=== PATIENT | male | born 1955 | race Caucasian/White ===

== ENCOUNTER 2024-08-21 14:34 | Outpatient (AMB) | payer MEDICARE, MEDICAID, SELFPAY ==
--- NOTE | 2024-08-21 15:02 | PD.ORTHCLVIS ---
Vital signs 08/21/24 15:06 Height 1.68 m Height Method Stated Weight 101 kg Weight Measurement Method Estimated by Patient BMI 35.8 BP 129/77 Blood Pressure Source Automatic Cuff Blood Pressure Location Right Upper Arm Position Sitting Respiration 20 Pulse 93 Pulse Source Monitor Temp 97.5 F Temp Source Temporal Artery Scan Pulse Oximetry (%) 85 L Oxygen Delivery Method Nasal Cannula Oxy Mask Med/Allergies Allergies & Medications Allergies No Known Allergies Allergy (Verified 08/21/24 15:06) Medication Reconciliation albuterol sulfate 90 mcg/actuation aerosol inhaler (Ventolin HFA) 2 puff inhalation Q6H 01/29/18 [History Confirmed 08/21/24] carvedilol 25 mg tablet 25 mg PO BID 01/29/18 [History Confirmed 08/21/24] acetaminophen 650 mg tablet,extended release (Tylenol 8 Hour) 650 mg PO Q8H 08/07/24 [History Confirmed 08/21/24] apixaban 5 mg tablet (Eliquis) 5 mg PO BID 08/07/24 [History Confirmed 08/21/24] aspirin 81 mg tablet,delayed release (Adult Low Dose Aspirin) 81 mg PO QDAY 08/07/24 [History Confirmed 08/21/24] atorvastatin 40 mg tablet 40 mg PO QDAY 08/07/24 [History Confirmed 08/21/24] benzonatate 100 mg capsule 100 mg PO TID 08/07/24 [History Confirmed 08/21/24] bisacodyl 5 mg tablet,delayed release (Dulcolax (bisacodyl)) 5 mg PO QHS 08/07/24 [History Confirmed 08/21/24] carvedilol 25 mg tablet 25 mg PO BID 08/07/24 [History Confirmed 08/21/24] cholecalciferol (vitamin D3) 50 mcg (2,000 unit) capsule 50 mcg PO QDAY 08/07/24 [History Confirmed 08/21/24] empagliflozin 25 mg tablet (Jardiance) 25 mg PO QDAY 08/07/24 [History Confirmed 08/21/24] enalapril maleate 20 mg tablet 20 mg PO QDAY 08/07/24 [History Confirmed 08/21/24] fluticasone 250 mcg-salmeterol 50 mcg/dose blistr powdr for inhalation (Advair Diskus) 1 inh inhalation BID 08/07/24 [History Confirmed 08/21/24] furosemide 20 mg tablet 20 mg PO QDAY 08/07/24 [History Confirmed 08/21/24] glipizide 10 mg tablet 10 mg PO BID 08/07/24 [History Confirmed 08/21/24] insulin glargine 100 unit/mL (3 mL) subcutaneous pen (Basaglar KwikPen U-100 Insulin) 10 unit subcut BID 08/07/24 [History Confirmed 08/21/24] lancets 30 gauge (CareSens Lancets) 08/07/24 [History Confirmed 08/21/24] pen needle, diabetic 31 gauge x 5/16 (Advocate Pen Needle) 08/07/24 [History Confirmed 08/21/24] prednisone 20 mg tablet 20 mg PO QDAY 08/07/24 [History Confirmed 08/21/24] umeclidinium 62.5 mcg/actuation blister powder for inhalation (Incruse Ellipta) 1 inh inhalation QDAY 08/07/24 [History Confirmed 08/21/24] Subjective Visit Visit for: new patient and knee Immunization / Flu Flu Vaccine in the Last 12 Months: No Flu Vaccine Exclusion Criteria: Refused by Patient History of Present Illness Chief complaint: CHRONIC KNEE PAIN Date of injury / onset of symptoms: MARGARITA Tapia is a pleasant 68-year-old male with multiple medical issues. He has left greater than right knee arthritis. He is on home oxygen and has a history of DVT and CHF. He reports that he cannot get surgery and this seems reasonable given what he is telling me.The pain is affecting his quality life and happiness. If he would like an injection in his right knee today. Personal History Occupation: DISABLED Red flag PMH: Blood thinners and COPD Pain Pain level (0-10): 9 Pain duration: ALL DAY Pain location: inside (medial), outside (lateral), anterior and posterior Pain quality: sharp, dull and aching Pain timing: night, increases with activity and stairs Associated signs & symptoms: numbness Ambulatory data Ambulatory device: none Treatments Improvement with previous injections: No Improvement with PT: No Improvement with NSAIDS: n/a Review of Systems Review of Systems: All systems negative unless otherwise noted in HPI. Exam Exam Patient is in no acute distress and is cooperative with the examination today. Breathing is nonlabored. In no respiratory distress. Bilateral extremities were evaluated and demonstrates sensation intact to light touch. Palpable pedal pulses are present. No significant edema is present. Bilateral hips were examined. The patient has no pain with log roll of the hips. Internal rotation to 30 degrees and external rotation to 30 degrees is painless. Negative FADIR. The left knee was examined. The left knee is in [varus] alignment. Range of motion from [0-115] degrees. Knee is stable to varus and valgus as well as AP translation with <5mm. Patient has a [negative] McMurrays. There is [no] pain with patellofemoral compression and [no] crepitus noted. The knee is [tender] to palpation [medially]. The right knee was also examined. The right knee is in [varus] alignment. Range of motion from [0-120] degrees. Knee is stable to varus and valgus as well as AP translation with <5mm. Patient has a [negative] McMurrays. There is [no] pain with patellofemoral compression and [no] crepitus noted. The knee is [tender] to palpation [medially]. Left knee x-rays from [facility] demonstrate significant joint space narrowing medially with varus deformity and arthritis Assessment and Plan Problem List (1) Degenerative arthritis of knee, bilateral: Status: Acute Plan: Patient is a pleasant 68-year-old male with bilateral knee pain and bilateral knee arthritis. Plan Recommend knee cortisone injection as patient would like to proceed with conservative treatment at this time. We will get an injection in the right knee. Recommend knee cortisone injection as patient would like to proceed with conservative treatment at this time. The risks and benefits of the procedure were reviewed with the patient and patient gave verbal consent to continue with the procedure. Procedure: performed by Dr. Montero Using sterile technique the Right knee was thoroughly prepped with alcohol, and approximately 1 cc of Kenalog 40 mg/mL and 4 cc of 1% lidocaine was injected without resistance into the medial tibial femoral joint space. The patient tolerated the procedure. Advanced Care Planning Discussion Advance care planning discussed with:: patient Office Procedures GNS Level of Care Nursing/Assessment Patient Status: Established Patient Nursing Assessment/Reassesment: Medication Reconciliation, Update PMH in EMR and Vital Signs Coordination of Care: Complex Care and Chronic Disease 1-5, Education Complex Pt/Fam, Consent,records obtained, informed consent, Results/Orders obtained and Staff clarify orders Established Patient Charge Established Patient Point Assignment: 95 Established Patient Point Charge: EP Level 3 (80-115) Surgical Proc/IM SQ injection Major Surgical Procedure: Yes (KNEE INJECTION) Medication Given Medication Given Medication Given: Yes Documented Dose Given: 4 Route: Infiitration Medication Given Medication Given Medication Given: Yes Documented Dose Given: 1 Route: Infiitration Office Meds Xylocaine 10 mg/mL (1 %) injection solution Performing Provider: Haroldo Montero MD Performing Location: [facility] Administered by: Haroldo Montero MD on 08/21/24 15:15 Dose Route Admin Location Dispensed Lot Number Expiration Date [facility] [employer] 20 mL Infiltration 20 mL [id number] [facility] triamcinolone acetonide 40 mg/mL suspension for injection Performing Provider: Haroldo Montero MD Performing Location: [facility] Administered by: Haroldo Montero MD on 08/21/24 15:15 Dose Route Admin Location Dispensed Lot Number Expiration Date [facility] [employer]ist 40 mg intra-articular 1 mL [id number] [employer] Past Medical History Past Medical History Have you ever been diagnosed with any of the following: Cardiology Problems Congestive Heart Failure: Yes Edema: Yes Hypertension: Yes Respiratory Problems Chronic Obstructive Pulmonary Disease (COPD): Yes Emphysema: Yes Smoking: No Smoking Cessation Counseling: No Smoking Exposure: No Tobacco Use: No Genital/Urinary Problems Renal Disease: No Endocrine Problems Diabetes Mellitus Type 1: No Diabetes Mellitus Type 2: Yes
[2024-08-21 15:06] VITALS: BP 129/77; PULSE 93; RESP 20; TEMP 36.4; O2SAT 85; BMI 35.8
== END 2024-08-21 15:19 | disposition home or self-care (01) ==
LOC: HODSRG 14:34
PROVIDERS: Supervising Provider Orthopaedic Surgery Adult Reconstructive Orthopaedic Surgery; Visit Provider Orthopaedic Surgery Adult Reconstructive Orthopaedic Surgery
DX: M17.0 Bilateral primary osteoarthritis of knee (principal); M25.562 Pain in left knee; M25.561 Pain in right knee; I11.0 Hypertensive heart disease with heart failure; I50.9 Heart failure, unspecified; Z99.81 Dependence on supplemental oxygen; Z86.718 Personal history of other venous thrombosis and embolism
CPT/HCPCS: 20610; 99213; J3301; J3490; G0463

== ENCOUNTER 2024-11-20 14:32 | Outpatient (AMB) | payer MEDICARE, SELFPAY ==
[2024-11-20 14:45] VITALS: BP 107/69; PULSE 78; RESP 18; TEMP 36.7; O2SAT 88; BMI 34.6
--- NOTE | 2024-11-20 14:45 | ORTHONT_ITS ---
Vital signs 11/20/24 14:45 Height 1.68 m Height Method Stated Weight 97.749 kg Weight Measurement Method Standing Scale BMI 34.6 BP 107/69 Blood Pressure Source Automatic Cuff Blood Pressure Location Left Upper Arm Position Sitting Respiration 18 Pulse 78 Pulse Source Monitor Temp 98.1 F Temp Source Temporal Artery Scan Pulse Oximetry (%) 88 L Oxygen Delivery Method Room Air Nasal Cannula Med/Allergies Allergies & Medications Allergies No Known Allergies Allergy (Verified 11/20/24 14:46) Medication Reconciliation albuterol sulfate 90 mcg/actuation aerosol inhaler (Ventolin HFA) 2 puff inhalation Q6H 01/29/18 [History Confirmed 11/20/24] carvedilol 25 mg tablet 25 mg PO BID 01/29/18 [History Confirmed 11/20/24] acetaminophen 650 mg tablet,extended release (Tylenol 8 Hour) 650 mg PO Q8H 08/07/24 [History Confirmed 11/20/24] apixaban 5 mg tablet (Eliquis) 5 mg PO BID 08/07/24 [History Confirmed 11/20/24] aspirin 81 mg tablet,delayed release (Adult Low Dose Aspirin) 81 mg PO QDAY 08/07/24 [History Confirmed 11/20/24] atorvastatin 40 mg tablet 40 mg PO QDAY 08/07/24 [History Confirmed 11/20/24] benzonatate 100 mg capsule 100 mg PO TID 08/07/24 [History Confirmed 11/20/24] bisacodyl 5 mg tablet,delayed release (Dulcolax (bisacodyl)) 5 mg PO QHS 08/07/24 [History Confirmed 11/20/24] carvedilol 25 mg tablet 25 mg PO BID 08/07/24 [History Confirmed 11/20/24] cholecalciferol (vitamin D3) 50 mcg (2,000 unit) capsule 50 mcg PO QDAY 08/07/24 [History Confirmed 11/20/24] empagliflozin 25 mg tablet (Jardiance) 25 mg PO QDAY 08/07/24 [History Confirmed 11/20/24] enalapril maleate 20 mg tablet 20 mg PO QDAY 08/07/24 [History Confirmed 11/20/24] fluticasone 250 mcg-salmeterol 50 mcg/dose blistr powdr for inhalation (Advair Diskus) 1 inh inhalation BID 08/07/24 [History Confirmed 11/20/24] furosemide 20 mg tablet 20 mg PO QDAY 08/07/24 [History Confirmed 11/20/24] glipizide 10 mg tablet 10 mg PO BID 08/07/24 [History Confirmed 11/20/24] insulin glargine 100 unit/mL (3 mL) subcutaneous pen (Basaglar KwikPen U-100 Insulin) 10 unit subcut BID 08/07/24 [History Confirmed 11/20/24] lancets 30 gauge (CareSens Lancets) 08/07/24 [History Confirmed 11/20/24] pen needle, diabetic 31 gauge x 5/16 (Advocate Pen Needle) 08/07/24 [History Confirmed 11/20/24] prednisone 20 mg tablet 20 mg PO QDAY 08/07/24 [History Confirmed 11/20/24] umeclidinium 62.5 mcg/actuation blister powder for inhalation (Incruse Ellipta) 1 inh inhalation QDAY 08/07/24 [History Confirmed 11/20/24] Exam Exam Patient is in no acute distress and is cooperative with the examination today. Breathing is nonlabored. In no respiratory distress. Bilateral extremities were evaluated and demonstrates sensation intact to light touch. Palpable pedal pulses are present. No significant edema is present. Bilateral hips were examined. The patient has no pain with log roll of the hips. Internal rotation to 30 degrees and external rotation to 30 degrees is painless. Negative FADIR. The left knee was examined. The left knee is in [varus] alignment. Range of motion from [0-115] degrees. Knee is stable to varus and valgus as well as AP translation with <5mm. Patient has a [negative] McMurrays. There is [no] pain with patellofemoral compression and [no] crepitus noted. The knee is [tender] to palpation [medially]. The right knee was also examined. The right knee is in [varus] alignment. Range of motion from [0-120] degrees. Knee is stable to varus and valgus as well as AP translation with <5mm. Patient has a [negative] McMurrays. There is [no] pain with patellofemoral compression and [no] crepitus noted. The knee is [tender] to palpation [medially]. [facility] demonstrate significant joint space narrowing medially with varus deformity and arthritis Assessment and Plan Problem List (1) Degenerative arthritis of knee, bilateral: Status: Acute Plan: Patient is a pleasant 68-year-old male with bilateral knee pain and bilateral knee arthritis. Plan Recommend knee cortisone injection as patient would like to proceed with conservative treatment at this time. Her will get an injection in the leftknee. Recommend knee cortisone injection as patient would like to proceed with conservative treatment at this time. The risks and benefits of the procedure were reviewed with the patient and patient gave verbal consent to continue with the procedure. Procedure: performed by Dr. Montero Using sterile technique the left knee was thoroughly prepped with alcohol, and approximately 1 cc of Kenalog 40 mg/mL and 4 cc of 1% lidocaine was injected without resistance into the medial tibial femoral joint space. The patient tolerated the procedure. Advanced Care Planning Discussion Advance care planning discussed with:: patient Office Procedures GNS Level of Care Nursing/Assessment Patient Status: Established Patient Nursing Assessment/Reassesment: Medication Reconciliation, Update PMH in EMR and Vital Signs Coordination of Care: Complex Care and Chronic Disease 1-5, Education Complex Pt/Fam, Consent,records obtained, informed consent, Results/Orders obtained and Staff clarify orders Established Patient Charge Established Patient Point Assignment: 95 Established Patient Point Charge: EP Level 3 (80-115) Surgical Proc/IM SQ injection Major Surgical Procedure: Yes (LEFT KNEE INJECTION) Medication Given Medication Given Medication Given: Yes Documented Dose Given: 4 Route: Infiitration Medication Given Medication Given Medication Given: Yes Documented Dose Given: 1 Route: Infiitration Office Meds Xylocaine 10 mg/mL (1 %) injection solution Performing Provider: Haroldo Montero MD Performing Location: [facility] Administered by: Haroldo Montero MD on 11/20/24 15:01 Dose Route Admin Location Dispensed Lot Number Expiration Date [facility] [employer] Database [employer]st 20 mL Infiltration 20 mL [id number] 06/29/27 93467-118-20 [facility] triamcinolone acetonide 40 mg/mL suspension for injection Performing Provider: Haroldo Montero MD Performing Location: [facility] Administered by: Haroldo Montero MD on 11/20/24 15:01 Dose Route Admin Location Dispensed Lot Number Expiration Date [facility] [employer] 40 mg intra-articular KNEE 1 mL [id number] 03/29/26 4128-1674-75 LYUBOV RANDOLPH MA Intake Visit Data Collection New Patient or Established: Established Patient (seen at [facility] within 3 years) Reason for Visit:: LEFT KNEE INJECTION Seen by Clinical Staff ONLY (RN/MA): No Cashier Assistant Required: No PCP or OBGYN visit in last 3 months: Yes Hx Now: No Do You Feel Safe at Home: Yes Authorities Contacted: N/A Questionairres Past Medical History Past Medical History Have you ever been diagnosed with any of the following: Cardiology Problems Congestive Heart Failure: Yes Edema: Yes Hypertension: Yes Respiratory Problems Chronic Obstructive Pulmonary Disease (COPD): Yes Emphysema: Yes Smoking: No Smoking Cessation Counseling: No Smoking Exposure: No Tobacco Use: No Genital/Urinary Problems Renal Disease: No Endocrine Problems Diabetes Mellitus Type 1: No Diabetes Mellitus Type 2: Yes Subjective Visit Visit for: follow up visit, knee (RIGHT) and injections Immunization / Flu Flu Vaccine in the Last 12 Months: No Flu Vaccine Exclusion Criteria: No Exclusion Criteria History of Present Illness Chief complaint: right knee osteoarthritis Willie is a pleasant 68-year-old male with multiple medical issues. He has left greater than right knee arthritis. He is on home oxygen and has a history of DVT and CHF. He reports that he cannot get surgery and this seems reasonable given what he is telling me.The pain is affecting his quality life and happiness. he would like an injection in his right knee today. Pain Pain level (0-10): 5 Pain duration: COMES AND GOES Pain location: inside (medial) Pain quality: sharp and aching Pain timing: increases with activity and stairs Associated signs & symptoms: none Ambulatory data Ambulatory device: none Treatments Improvement with previous injections: No Improvement with PT: No Improvement with NSAIDS: no Review of Systems Review of Systems: All systems negative unless otherwise noted in HPI.
== END 2024-11-20 15:03 | disposition home or self-care (01) ==
PROVIDERS: Supervising Provider Orthopaedic Surgery Adult Reconstructive Orthopaedic Surgery; Visit Provider Orthopaedic Surgery Adult Reconstructive Orthopaedic Surgery
DX: M17.0 Bilateral primary osteoarthritis of knee (principal); M25.562 Pain in left knee; M25.561 Pain in right knee; I11.0 Hypertensive heart disease with heart failure; I50.9 Heart failure, unspecified; Z86.718 Personal history of other venous thrombosis and embolism; Z99.81 Dependence on supplemental oxygen
CPT/HCPCS: 20610; 99213; J3301; J3490; G0463

== ENCOUNTER 2025-06-25 15:20 | Outpatient (AMB) | payer MEDICARE, MEDICAID, SELFPAY ==
[2025-06-25 15:30] VITALS: BP 157/84; PULSE 102; RESP 18; TEMP 35.2; O2SAT 91; BMI 34.5
--- NOTE | 2025-06-25 15:30 | PD.ORTHCLVIS ---
Vital signs 06/25/25 15:30 Height 1.68 m Height Method Measured Weight 97.522 kg Weight Measurement Method Standing Scale BMI 34.5 BP 157/84 H Blood Pressure Source Automatic Cuff Blood Pressure Location Left Upper Arm Position Sitting Respiration 18 Pulse 102 H Pulse Source Monitor Temp 95.4 F L Temp Source Temporal Artery Scan Pulse Oximetry (%) 91 L Oxygen Delivery Method Room Air Med/Allergies Allergies & Medications Allergies No Known Allergies Allergy (Verified 06/25/25 15:31) Medication Reconciliation albuterol sulfate 90 mcg/actuation aerosol inhaler (Ventolin HFA) 2 puff inhalation Q6H 01/29/18 [History Confirmed 06/25/25] carvedilol 25 mg tablet 25 mg PO BID 01/29/18 [History Confirmed 06/25/25] acetaminophen 650 mg tablet,extended release (Tylenol 8 Hour) 650 mg PO Q8H 08/07/24 [History Confirmed 06/25/25] apixaban 5 mg tablet (Eliquis) 5 mg PO BID 08/07/24 [History Confirmed 06/25/25] aspirin 81 mg tablet,delayed release (Adult Low Dose Aspirin) 81 mg PO QDAY 08/07/24 [History Confirmed 06/25/25] atorvastatin 40 mg tablet 40 mg PO QDAY 08/07/24 [History Confirmed 06/25/25] benzonatate 100 mg capsule 100 mg PO TID 08/07/24 [History Confirmed 06/25/25] bisacodyl 5 mg tablet,delayed release (Dulcolax (bisacodyl)) 5 mg PO QHS 08/07/24 [History Confirmed 06/25/25] carvedilol 25 mg tablet 25 mg PO BID 08/07/24 [History Confirmed 06/25/25] cholecalciferol (vitamin D3) 50 mcg (2,000 unit) capsule 50 mcg PO QDAY 08/07/24 [History Confirmed 06/25/25] empagliflozin 25 mg tablet (Jardiance) 25 mg PO QDAY 08/07/24 [History Confirmed 06/25/25] enalapril maleate 20 mg tablet 20 mg PO QDAY 08/07/24 [History Confirmed 06/25/25] fluticasone 250 mcg-salmeterol 50 mcg/dose blistr powdr for inhalation (Advair Diskus) 1 inh inhalation BID 08/07/24 [History Confirmed 06/25/25] furosemide 20 mg tablet 20 mg PO QDAY 08/07/24 [History Confirmed 06/25/25] glipizide 10 mg tablet 10 mg PO BID 08/07/24 [History Confirmed 06/25/25] insulin glargine 100 unit/mL (3 mL) subcutaneous pen (Basaglar KwikPen U-100 Insulin) 10 unit subcut BID 08/07/24 [History Confirmed 06/25/25] lancets 30 gauge (CareSens Lancets) 08/07/24 [History Confirmed 06/25/25] pen needle, diabetic 31 gauge x 5/16 (Advocate Pen Needle) 08/07/24 [History Confirmed 06/25/25] prednisone 20 mg tablet 20 mg PO QDAY 08/07/24 [History Confirmed 06/25/25] umeclidinium 62.5 mcg/actuation blister powder for inhalation (Incruse Ellipta) 1 inh inhalation QDAY 08/07/24 [History Confirmed 06/25/25] Exam Exam Patient is in no acute distress and is cooperative with the examination today. Breathing is nonlabored. In no respiratory distress. Bilateral extremities were evaluated and demonstrates sensation intact to light touch. Palpable pedal pulses are present. No significant edema is present. Bilateral hips were examined. The patient has no pain with log roll of the hips. Internal rotation to 30 degrees and external rotation to 30 degrees is painless. Negative FADIR. The left knee was examined. The left knee is in [varus] alignment. Range of motion from [0-115] degrees. Knee is stable to varus and valgus as well as AP translation with <5mm. Patient has a [negative] McMurrays. There is [no] pain with patellofemoral compression and [no] crepitus noted. The knee is [tender] to palpation [medially]. The right knee was also examined. The right knee is in [varus] alignment. Range of motion from [0-120] degrees. Knee is stable to varus and valgus as well as AP translation with <5mm. Patient has a [negative] McMurrays. There is [no] pain with patellofemoral compression and [no] crepitus noted. The knee is [tender] to palpation [medially]. Left knee x-rays from [facility] demonstrate significant joint space narrowing medially with varus deformity and arthritis Assessment and Plan Problem List (1) Degenerative arthritis of knee, bilateral: Status: Acute Plan: Patient is a pleasant 68-year-old male with bilateral knee pain and bilateral knee arthritis. Plan Recommend knee cortisone injection as patient would like to proceed with conservative treatment at this time. Recommend knee cortisone injection as patient would like to proceed with conservative treatment at this time. The risks and benefits of the procedure were reviewed with the patient and patient gave verbal consent to continue with the procedure. Procedure: performed by Dr. Montero Using sterile technique the Right knee was thoroughly prepped with alcohol, and approximately 1 cc of Depo-Medrol 80mg/mL and 4 cc of 0.2% ropivacaine was injected without resistance into the medial tibial femoral joint space. The patient tolerated the procedure. Recommend knee cortisone injection as patient would like to proceed with conservative treatment at this time. The risks and benefits of the procedure were reviewed with the patient and patient gave verbal consent to continue with the procedure. Procedure: performed by Dr. Montero Using sterile technique the left knee was thoroughly prepped with alcohol, and approximately 1 cc of Depo-Medrol 80mg/mL and 4 cc of 0.2% ropivacaine was injected without resistance into the medial tibial femoral joint space. The patient tolerated the procedure. Advanced Care Planning Discussion Advance care planning discussed with:: patient Office Procedures GNS Level of Care Nursing/Assessment Patient Status: Established Patient Nursing Assessment/Reassesment: Medication Reconciliation, Orthostatic Vitals, Update PMH in EMR and Vital Signs Coordination of Care: Complex Care and Chronic Disease 1-5, Education Complex Pt/Fam, Consent,records obtained, informed consent, Results/Orders obtained and Staff clarify orders Established Patient Charge Established Patient Point Assignment: 105 Established Patient Point Charge: EP Level 3 (80-115) Surgical Proc/IM SQ injection Major Surgical Procedure: Yes (KNEE INJECTION) Medication Given Medication Given Medication Given: Yes Documented Dose Given: 1 Route: Infiitration Medication Given Medication Given Medication Given: Yes Documented Dose Given: 1 Route: Infiitration Medication Given Medication Given Medication Given: Yes Documented Dose Given: 4 Route: Infiitration Medication Given Medication Given Medication Given: Yes Documented Dose Given: 4 Route: Infiitration Office Meds methylprednisolone acetate 80 mg/mL suspension for injection Performing Provider: Haroldo Montero MD Performing Location: [facility] Administered by: Haroldo Montero MD on 06/25/25 15:48 Dose Route Admin Location Dispensed Lot Number Expiration Date [facility] [employer] 80 mg intra-articular KNEE 1 mL [id number] 03/30/27 [address]-3 [employer] methylprednisolone acetate 80 mg/mL suspension for injection Performing Provider: Haroldo Montero MD Performing Location: [facility] Administered by: Haroldo Montero MD on 06/25/25 15:48 Dose Route Admin Location Dispensed Lot Number Expiration Date [facility] [employer] 80 mg intra-articular KNEE 1 mL [id number] 03/30/27 [address]-4 [employer] ropivacaine (PF) 2 mg/mL (0.2 %) injection solution Performing Provider: Haroldo Montero MD Performing Location: [facility] Administered by: Haroldo Montero MD on 06/25/25 15:48 Dose Route Admin Location Dispensed Lot Number Expiration Date [place] [employer] 20 mL Infiltration KNEE 20 mL [id number] 11/30/27 17741-765-22 [facility] ropivacaine (PF) 2 mg/mL (0.2 %) injection solution Performing Provider: Haroldo Montero MD Performing Location: [facility] Administered by: Haroldo Montero MD on 06/25/25 15:48 Dose Route Admin Location Dispensed Lot Number Expiration Date [place] [employer] 20 mL Infiltration KNEE 20 mL [id number] 11/30/27 60767-599-13 [facility] [place] Intake Visit Data Collection New Patient or Established: Established Patient (seen at [facility] within 3 years) Reason for Visit:: LEFT KNEE INJECTION Seen by Clinical Staff ONLY (RN/MA): No 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: No PCP or OBGYN visit in last 3 months: Yes Hx Now: No Do You Feel Safe at Home: Yes Authorities Contacted: N/A Questionairres Past Medical History Past Medical History Have you ever been diagnosed with any of the following: Cardiology Problems Congestive Heart Failure: Yes Edema: Yes Hypertension: Yes Respiratory Problems Chronic Obstructive Pulmonary Disease (COPD): Yes Emphysema: Yes Smoking: No Smoking Cessation Counseling: No Smoking Exposure: No Tobacco Use: No Genital/Urinary Problems Renal Disease: No Endocrine Problems Diabetes Mellitus Type 1: No Diabetes Mellitus Type 2: Yes Subjective Visit Visit for: follow up visit, knee (RIGHT) and injections Immunization / Flu Flu Vaccine in the Last 12 Months: No Flu Vaccine Exclusion Criteria: No Exclusion Criteria History of Present Illness Chief complaint: right knee osteoarthritis Willie is a pleasant 68-year-old male with multiple medical issues. He has left greater than right knee arthritis. He is on home oxygen and has a history of DVT and CHF. He reports that he cannot get surgery and this seems reasonable given what he is telling me.The pain is affecting his quality life and happiness. he would like an injection of both knees today. Pain Pain level (0-10): 5 Pain duration: COMES AND GOES Pain location: inside (medial) Pain quality: sharp and aching Pain timing: increases with activity and stairs Associated signs & symptoms: none Ambulatory data Ambulatory device: none Treatments Improvement with previous injections: No Improvement with PT: No Improvement with NSAIDS: no Review of Systems Review of Systems: All systems negative unless otherwise noted in HPI.
== END 2025-06-25 15:47 | disposition home or self-care (01) ==
LOC: HODSRG 15:20
PROVIDERS: Supervising Provider Orthopaedic Surgery Adult Reconstructive Orthopaedic Surgery; Visit Provider Orthopaedic Surgery Adult Reconstructive Orthopaedic Surgery
DX: M17.0 Bilateral primary osteoarthritis of knee (principal); M25.562 Pain in left knee; M25.561 Pain in right knee; I11.0 Hypertensive heart disease with heart failure; I50.9 Heart failure, unspecified; E11.9 Type 2 diabetes mellitus without complications; J44.9 Chronic obstructive pulmonary disease, unspecified; Z99.81 Dependence on supplemental oxygen; Z86.718 Personal history of other venous thrombosis and embolism
CPT/HCPCS: 20610; 99213; J1010; J2795; G0463

== ENCOUNTER 2025-10-17 14:07 | Outpatient (AMB) | payer MEDICARE, MEDICAID, SELFPAY ==
--- NOTE | 2025-10-17 14:31 | ORTHONT_ITS ---
Vital signs 10/17/25 14:36 Height 1.68 m Height Method Stated Weight 97.976 kg Weight Measurement Method Standing Scale BMI 34.7 BP 138/84 H Blood Pressure Source Automatic Cuff Blood Pressure Location Left Upper Arm Position Sitting Respiration 19 Pulse 97 Pulse Source Monitor Temp 97 F Temp Source Temporal Artery Scan Pulse Oximetry (%) 92 L Oxygen Delivery Method Room Air Nasal Cannula Med/Allergies Allergies & Medications Allergies No Known Allergies Allergy (Verified 10/17/25 14:37) Medication Reconciliation albuterol sulfate 90 mcg/actuation aerosol inhaler (Ventolin HFA) 2 puff inhalation Q6H 01/29/18 [History Confirmed 10/17/25] carvedilol 25 mg tablet 25 mg PO BID 01/29/18 [History Confirmed 10/17/25] acetaminophen 650 mg tablet,extended release (Tylenol 8 Hour) 650 mg PO Q8H 08/07/24 [History Confirmed 10/17/25] apixaban 5 mg tablet (Eliquis) 5 mg PO BID 08/07/24 [History Confirmed 10/17/25] aspirin 81 mg tablet,delayed release (Adult Low Dose Aspirin) 81 mg PO QDAY 08/07/24 [History Confirmed 10/17/25] atorvastatin 40 mg tablet 40 mg PO QDAY 08/07/24 [History Confirmed 10/17/25] benzonatate 100 mg capsule 100 mg PO TID 08/07/24 [History Confirmed 10/17/25] bisacodyl 5 mg tablet,delayed release (Dulcolax (bisacodyl)) 5 mg PO QHS 08/07/24 [History Confirmed 10/17/25] carvedilol 25 mg tablet 25 mg PO BID 08/07/24 [History Confirmed 10/17/25] cholecalciferol (vitamin D3) 50 mcg (2,000 unit) capsule 50 mcg PO QDAY 08/07/24 [History Confirmed 10/17/25] empagliflozin 25 mg tablet (Jardiance) 25 mg PO QDAY 08/07/24 [History Confirmed 10/17/25] enalapril maleate 20 mg tablet 20 mg PO QDAY 08/07/24 [History Confirmed 10/17/25] fluticasone 250 mcg-salmeterol 50 mcg/dose blistr powdr for inhalation (Advair Diskus) 1 inh inhalation BID 08/07/24 [History Confirmed 10/17/25] furosemide 20 mg tablet 20 mg PO QDAY 08/07/24 [History Confirmed 10/17/25] glipizide 10 mg tablet 10 mg PO BID 08/07/24 [History Confirmed 10/17/25] insulin glargine 100 unit/mL (3 mL) subcutaneous pen (Basaglar KwikPen U-100 Insulin) 10 unit subcut BID 08/07/24 [History Confirmed 10/17/25] lancets 30 gauge (CareSens Lancets) 08/07/24 [History Confirmed 10/17/25] pen needle, diabetic 31 gauge x 5/16 (Advocate Pen Needle) 08/07/24 [History Confirmed 10/17/25] prednisone 20 mg tablet 20 mg PO QDAY 08/07/24 [History Confirmed 10/17/25] umeclidinium 62.5 mcg/actuation blister powder for inhalation (Incruse Ellipta) 1 inh inhalation QDAY 08/07/24 [History Confirmed 10/17/25] Exam Exam Patient is in no acute distress and is cooperative with the examination today. Breathing is nonlabored. In no respiratory distress. Bilateral extremities were evaluated and demonstrates sensation intact to light touch. Palpable pedal pulses are present. No significant edema is present. Bilateral hips were examined. The patient has no pain with log roll of the hips. Internal rotation to 30 degrees and external rotation to 30 degrees is painless. Negative FADIR. The left knee was examined. The left knee is in [varus] alignment. Range of motion from [0-115] degrees. Knee is stable to varus and valgus as well as AP translation with <5mm. Patient has a [negative] McMurrays. There is [no] pain with patellofemoral compression and [no] crepitus noted. The knee is [tender] to palpation [medially]. The right knee was also examined. The right knee is in [varus] alignment. Range of motion from [0-120] degrees. Knee is stable to varus and valgus as well as AP translation with <5mm. Patient has a [negative] McMurrays. There is [no] pain with patellofemoral compression and [no] crepitus noted. The knee is [tender] to palpation [medially]. Left knee x-rays from [facility] demonstrate significant joint space narrowing medially with varus deformity and arthritis Assessment and Plan Problem List (1) Degenerative arthritis of knee, bilateral: Status: Acute Plan: Patient is a pleasant 68-year-old male with bilateral knee pain and bilateral knee arthritis. Plan Recommend knee cortisone injection as patient would like to proceed with conservative treatment at this time. Recommend knee cortisone injection as patient would like to proceed with conservative treatment at this time. The risks and benefits of the procedure were reviewed with the patient and patient gave verbal consent to continue with the procedure. Procedure: performed by Dr. Montero Using sterile technique the Right knee was thoroughly prepped with alcohol, and approximately 1 cc of Depo-Medrol 80mg/mL and 4 cc of 0.2% ropivacaine was injected without resistance into the medial tibial femoral joint space. The patient tolerated the procedure. Recommend knee cortisone injection as patient would like to proceed with con servative treatment at this time. The risks and benefits of the procedure were reviewed with the patient and patient gave verbal consent to continue with the procedure. Procedure: performed by Dr. Montero Using sterile technique the left knee was thoroughly prepped with alcohol, and approximately 1 cc of Depo-Medrol 80mg/mL and 4 cc of 0.2% ropivacaine was injected without resistance into the medial tibial femoral joint space. The patient tolerated the procedure. Advanced Care Planning Discussion Advance care planning discussed with:: patient Office Procedures GNS Level of Care Nursing/Assessment Patient Status: Established Patient Nursing Assessment/Reassesment: Medication Reconciliation, Update PMH in EMR and Vital Signs Coordination of Care: Complex Care and Chronic Disease 1-5, Education Complex Pt/Fam, Consent,records obtained, informed consent, Results/Orders obtained and Staff clarify orders Established Patient Charge Established Patient Point Assignment: 95 Established Patient Point Charge: EP Level 3 (80-115) Surgical Proc/IM SQ injection Minor Surgical Procedure: Yes (BILATERAL KNEE INJECTION) Medication Given Medication Given Medication Given: Yes Documented Dose Given: 2 Route: Infiitration Medication Given Medication Given Medication Given: Yes Documented Dose Given: 8 Route: Infiitration Office Meds methylprednisolone acetate 80 mg/mL suspension for injection Performing Provider: Haroldo Montero MD Performing Location: [facility] Administered by: Haroldo Montero MD on 10/17/25 14:37 Dose Route Admin Location Dispensed Lot Number Expiration Date Pack age [facility] [employer] 160 mg intra-articular KNEE 2 mL [id number] 06/29/27 [address]-2 [id number] [employer] ropivacaine (PF) 2 mg/mL (0.2 %) injection solution Performing Provider: Haroldo Montero MD Performing Location: [facility] Administered by: Haroldo Montero MD on 10/17/25 14:37 Dose Route Admin Location Dispensed Lot Number Expiration Date Pack age [facility] [employer] Plater 40 mL Infiltration KNEE 40 mL [id number] 03/29/27 7249-2255-18 [id number] [facility] Intake Visit Data Collection New Patient or Established: Established Patient (seen at [facility] within 3 years) Reason for Visit:: LEFT KNEE INJECTION Seen by Clinical Staff ONLY (RN/MA): No Public Health Physician Required: No PCP or OBGYN visit in last 3 months: Yes Hx Now: No Do You Feel Safe at Home: Yes Authorities Contacted: N/A Questionairres Past Medical History Past Medical History Have you ever been diagnosed with any of the following: Cardiology Problems Congestive Heart Failure: Yes Edema: Yes Hypertension: Yes Respiratory Problems Chronic Obstructive Pulmonary Disease (COPD): Yes Emphysema: Yes Smoking: No Smoking Cessation Counseling: No Smoking Exposure: No Tobacco Use: No Genital/Urinary Problems Renal Disease: No Endocrine Problems Diabetes Mellitus Type 1: No Diabetes Mellitus Type 2: Yes Subjective Visit Visit for: follow up visit, knee (RIGHT) and injections Immunization / Flu Flu Vaccine in the Last 12 Months: No Flu Vaccine Exclusion Criteria: No Exclusion Criteria History of Present Illness Chief complaint: right knee osteoarthritis Willie is a pleasant 68-year-old male with multiple medical issues. He has left greater than right knee arthritis. He is on home oxygen and has a history of DVT and CHF. He reports that he cannot get surgery and this seems reasonable given what he is telling me.The pain is affecting his quality life and happiness. he would like an injection of both knees today. Pain Pain level (0-10): 5 Pain duration: COMES AND GOES Pain location: inside (medial) Pain quality: sharp and aching Pain timing: increases with activity and stairs Associated signs & symptoms: none Ambulatory data Ambulatory device: none Treatments Improvement with previous injections: No Improvement with PT: No Improvement with NSAIDS: no Review of Systems Review of Systems: All systems negative unless otherwise noted in HPI.
[2025-10-17 14:36] VITALS: BP 138/84; PULSE 97; RESP 19; TEMP 36.1; O2SAT 92; BMI 34.7
== END 2025-10-17 14:33 | disposition home or self-care (01) ==
LOC: HODSRG 14:07
PROVIDERS: Supervising Provider Orthopaedic Surgery Adult Reconstructive Orthopaedic Surgery; Visit Provider Orthopaedic Surgery Adult Reconstructive Orthopaedic Surgery
DX: M17.0 Bilateral primary osteoarthritis of knee (principal)
CPT/HCPCS: 20610; 99213; J1010; J2795; G0463